=== PATIENT | male | born 1950 | race Caucasian/White ===

== ENCOUNTER 2018-08-17 11:22 | Inpatient (IN) | payer MEDICARE, BC ==
[2018-08-17 12:07] LABS: CHLORIDE,CL 98 mEq/L (98-106); SODIUM,NA 135 mEq/L (136-145)
[2018-08-17] MEDS ORDERED: Ibuprofen 200 MG Tab PO PRN (12:19)
[2018-08-17] MEDS ORDERED: Sodium Chloride 0.9% 10 ML Syringe FLUSH PRN (12:19)
[2018-08-17] MEDS ORDERED: Temazepam 15 MG Cap PO PRN (12:19)
[2018-08-17] MEDS: Azithromycin 500 MG in Sodium Chloride 0.9% 250 ML IV SCH (13:09)
[2018-08-17] MEDS: cefTRIAXone 1 GM Vial IVPUSH SCH (13:09)
[2018-08-17] MEDS: Albuterol/Ipratropium 3.0-0.5 MG/3 ML Neb Soln NEB PRN ×2 (13:09→19:54)
[2018-08-17] MEDS: Enoxaparin 40 MG/0.4 ML Syringe SUBCUT SCH (13:09)
[2018-08-17] MEDS ORDERED: Insulin Aspart 100 Units/ML 3 ML Pen SUBCUT SCH (17:30)
[2018-08-17] MEDS: SITAGLIPTIN PO SCH (17:32)
[2018-08-17] MEDS: METFORMIN PO SCH (17:32)
[2018-08-17] MEDS: Acetaminophen 325 MG Tab PO PRN (19:50)
[2018-08-18] MEDS: Acetaminophen 325 MG Tab PO PRN (07:45)
[2018-08-18] MEDS: Albuterol/Ipratropium 3.0-0.5 MG/3 ML Neb Soln NEB PRN (07:45)
[2018-08-18] MEDS: Aspirin 81 MG Tab.EC PO SCH (07:46)
[2018-08-18] MEDS: atorvaSTATin 10 MG Tab PO SCH (07:46)
[2018-08-18] MEDS: SITAGLIPTIN PO SCH ×2 (07:47→17:33)
[2018-08-18] MEDS: METFORMIN PO SCH ×2 (07:47→17:33)
[2018-08-18] MEDS: Lisinopril 5 MG Tab PO SCH (07:47)
[2018-08-18 07:56] LABS: CHLORIDE,CL 100 mEq/L (98-106); SODIUM,NA 137 mEq/L (136-145)
--- NOTE | 2018-08-18 09:26 | PCM.PN ---
- General Info Date of Service: 08/18/18 Admission Dx/Problem (Free Text): CAP Functional Status: Reports: Pain Controlled, Tolerating Diet, Ambulating - Review of Systems General: Reports: Fever, Weakness, Fatigue, Malaise HEENT: Reports: Rhinitis. Denies: Sinus Congestion, Sore Throat Pulmonary: Reports: Shortness of Breath, Cough, Wheezing Cardiovascular: Denies: Chest Pain, Edema, Lightheadedness Gastrointestinal: Denies: Abdominal Pain, Nausea, Vomiting Genitourinary: Reports: No Symptoms Musculoskeletal: Reports: No Symptoms Skin: Reports: No Symptoms Neurological: Reports: No Symptoms - Patient Data Vitals - Most Recent: Last Vital Signs Temp 97.9 F 08/18/18 04:00 Pulse 78 08/18/18 04:00 Resp 20 08/18/18 04:00 BP 144/78 H 08/18/18 07:47 Pulse Ox 94 L 08/18/18 04:00 Weight - Most Recent: 292 lb Lab Results Last 24 Hours: Laboratory Results - last 24 hr 08/17/18 08/17/18 08/17/18 Range/Units 11:32 11:32 17:30 WBC 11.3 H (5.0-10.0) 10^3/uL RBC 4.94 (4.50-6.00) 10^6/uL Hgb 14.5 (14.0-18.0) g/dL Hct 43.1 (40.0-54.0) % MCV 87.2 (82.0-94.0) fL MCH 29.4 (27.0-32.0) pg MCHC 33.6 (33.0-38.0) g/dL RDW Coeff of Erica 13.1 (11.0-15.0) % Plt Count 177 (150-400) 10^3/uL Neut % (Auto) 73.0 (35-85) % Lymph % (Auto) 12.3 (10-55) % [place] % (Auto) 9.5 (0-16) % Eos % (Auto) 4.8 (0-5) % Baso % (Auto) 0.4 (0-3) % Neut # (Auto) 8.22 H (1.80-7.00) 10^3/uL Lymph # (Auto) 1.39 (1.00-4.80) 10^3/uL [place] # (Auto) 1.07 H (0.00-0.80) 10^3/uL Eos # (Auto) 0.54 H (0.00-0.45) 10^3/uL Baso # (Auto) 0.05 10^3/uL Sodium 135 L (136-145) mEq/L Potassium 4.2 (3.5-5.0) mEq/L Chloride 98 (98-106) mEq/L Carbon Dioxide 29 (21-32) mmol/L BUN 18 (7-18) mg/dL Creatinine 1.2 (0.7-1.3) mg/dL Est Cr Clr Drug Dosing TNP Estimated GFR (MDRD) > 60 (>=60) mL/min Glucose 212 H D (75-99) mg/dL POC Glucose 181 H (75-105) mg/dl Calcium 8.6 (8.4-10.1) mg/dL C-Reactive Protein 1.7 H (0.2-0.8) mg/dL 08/17/18 08/18/18 08/18/18 Range/Units 20:35 05:11 07:26 WBC 8.4 (5.0-10.0) 10^3/uL RBC 4.32 L (4.50-6.00) 10^6/uL Hgb 12.8 L (14.0-18.0) g/dL Hct 38.5 L (40.0-54.0) % MCV 89.1 (82.0-94.0) fL MCH 29.6 (27.0-32.0) pg MCHC 33.2 (33.0-38.0) g/dL RDW Coeff of Erica 13.1 (11.0-15.0) % Plt Count 154 (150-400) 10^3/uL Neut % (Auto) 62.0 (35-85) % Lymph % (Auto) 21.0 (10-55) % [place] % (Auto) 11.9 (0-16) % Eos % (Auto) 4.6 (0-5) % Baso % (Auto) 0.5 (0-3) % Neut # (Auto) 5.22 (1.80-7.00) 10^3/uL Lymph # (Auto) 1.77 (1.00-4.80) 10^3/uL [place] # (Auto) 1.00 H (0.00-0.80) 10^3/uL Eos # (Auto) 0.39 (0.00-0.45) 10^3/uL Baso # (Auto) 0.04 10^3/uL Sodium 137 (136-145) mEq/L Potassium 4.2 (3.5-5.0) mEq/L Chloride 100 (98-106) mEq/L Carbon Dioxide 29 (21-32) mmol/L BUN 17 (7-18) mg/dL Creatinine 1.1 (0.7-1.3) mg/dL Est Cr Clr Drug Dosing 65.17 Estimated GFR (MDRD) > 60 (>=60) mL/min Glucose 210 H (75-99) mg/dL POC Glucose 198 H (75-105) mg/dl Calcium 8.7 (8.4-10.1) mg/dL C-Reactive Protein 2.4 H (0.2-0.8) mg/dL 08/18/18 Range/Units 07:27 WBC (5.0-10.0) 10^3/uL RBC (4.50-6.00) 10^6/uL Hgb (14.0-18.0) g/dL Hct (40.0-54.0) % MCV (82.0-94.0) fL MCH (27.0-32.0) pg MCHC (33.0-38.0) g/dL RDW Coeff of Erica (11.0-15.0) % Plt Count (150-400) 10^3/uL Neut % (Auto) (35-85) % Lymph % (Auto) (10-55) % [place] % (Auto) (0-16) % Eos % (Auto) (0-5) % Baso % (Auto) (0-3) % Neut # (Auto) (1.80-7.00) 10^3/uL Lymph # (Auto) (1.00-4.80) 10^3/uL [place] # (Auto) (0.00-0.80) 10^3/uL Eos # (Auto) (0.00-0.45) 10^3/uL Baso # (Auto) 10^3/uL Sodium (136-145) mEq/L Potassium (3.5-5.0) mEq/L Chloride (98-106) mEq/L Carbon Dioxide (21-32) mmol/L BUN (7-18) mg/dL Creatinine (0.7-1.3) mg/dL Est Cr Clr Drug Dosing Estimated GFR (MDRD) (>=60) mL/min Glucose (75-99) mg/dL POC Glucose 182 H (75-105) mg/dl Calcium (8.4-10.1) mg/dL C-Reactive Protein (0.2-0.8) mg/dL Mesfin Results Last 24 Hours: Microbiology 08/17/18 11:32 Influenza Type A Antigen Screen - Final Nasopharyngeal Swab NEGATIVE INFLUENZA A VIRUS AG Influenza Type B Antigen Screen - Final NEGATIVE INFLUENZA B VIRUS AG Med Orders - Current: Current Medications Acetaminophen (Tylenol) 650 mg PO Q4H PRN PRN Reason: Pain (Mild 1-3)/fever Last Admin: 08/18/18 07:45 Dose: 650 mg Albuterol/Ipratropium (Duoneb 3.0-0.5 Mg/3 Ml) 3 ml NEB QIDRT [facility] Aspirin (Halfprin) 81 mg PO DAILY [facility] Last Admin: 08/18/18 07:46 Dose: 81 mg Atorvastatin Calcium (Lipitor) 10 mg PO DAILY [facility] Last Admin: 08/18/18 07:46 Dose: 10 mg Ceftriaxone Sodium (Rocephin) 1 gm IVPUSH Q24H [facility] Last Admin: 08/17/18 13:09 Dose: 1 gm Enoxaparin Sodium (Lovenox) 40 mg SUBCUT Q24H [facility] Last Admin: 08/17/18 13:09 Dose: 40 mg Azithromycin 500 mg/ Sodium (Chloride) 250 mls @ 250 mls/hr IV Q24H [facility] Last Admin: 08/17/18 13:09 Dose: 250 mls/hr Ibuprofen (Motrin) 400 mg PO Q6H PRN PRN Reason: Pain (mild 1-3) Insulin Aspart (Novolog) 0 unit SUBCUT TIDMEALS [facility]; Protocol Last Admin: 08/18/18 07:54 Dose: 2 units Lisinopril (Prinivil) 5 mg PO DAILY [facility] Last Admin: 08/18/18 07:47 Dose: 5 mg Methylprednisolone Sodium Succinate (Solu-Medrol) 62.5 mg IVPUSH Q12H [facility] Sitagliptin/Metformin [Janumet] 50-1,000mg Own Med 1 tab PO BIDMEALS [facility] Last Admin: 08/18/18 07:47 Dose: 1 tab Sodium Chloride (Saline Flush) 10 ml FLUSH ASDIRECTED PRN PRN Reason: Keep Vein Open Temazepam (Restoril) 15 mg PO BEDTIME PRN PRN Reason: Sleep Discontinued Medications Albuterol/Ipratropium (Duoneb 3.0-0.5 Mg/3 Ml) 3 ml NEB Q4H PRN PRN Reason: Shortness Of Breath/wheezing Last Admin: 08/18/18 07:45 Dose: 3 ml Insulin Aspart (Novolog) 0 unit SUBCUT TIDMEALS [facility]; Protocol Last Admin: 08/17/18 17:51 Dose: Not Given - Exam General: Alert, Oriented HEENT: Mucous Membr. Moist/[place] Neck: Supple Lungs: Decreased Breath Sounds, Wheezing Cardiovascular: Regular Rate, Regular Rhythm GI/Abdominal Exam: Normal Bowel Sounds, Soft, Non-Tender Extremities: Normal Inspection, No Pedal Edema Skin: Warm, Dry Neurological: No New Focal Deficit - Problem List & Annotations (1) Asthma exacerbation SNOMED Code(s): 774934771 Code(s): J45.901 - UNSPECIFIED ASTHMA WITH (ACUTE) EXACERBATION Status: Acute Priority: High Current Visit: Yes Qualifiers: Asthma severity: moderate Asthma persistence: persistent Qualified Code(s ): J45.41 - Moderate persistent asthma with (acute) exacerbation (2) Bronchitis SNOMED Code(s): 90596156 Code(s): J40 - BRONCHITIS, NOT SPECIFIED ACUTE OR CHRONIC Status: Acute Priority: High Current Visit: Yes - Problem List Review Problem List Initiated/Reviewed/Updated: Yes - My Orders Last 24 Hours: My Active Orders 08/18/18 09:00 methylPREDNISolone Sod Succ [Solu-MEDROL] 62.5 mg IVPUSH Q12H 08/18/18 12:00 Albuterol/Ipratropium [DuoNeb 3.0-0.5 MG/3 ML] 3 ml NEB QIDRT - Assessment Assessment:: CAP ruled out Asthma Exacerbation Acute Bronchitis - Plan Plan:: Patient is showing improvement today. Has better air exchange today. Still noted to have diffuse wheezing. Fever of 101 last evening. WBC 8.4. CRP 2.4. Hemoglobin 12.8. Chest Xray clear for infiltrates, does show air trapping related to asthma. Is ambulating better today, does still get dyspneic but relates it has improved. Maintaining his sats above 90%. Will continue with IV antibiotics as ordered. Start Solu Medrol 62.5 mg BID. Watch blood sugars closely. Schedule nebulizer treatments. Stop cardiac monitoring. possible discharge home tomorrow.
[2018-08-18] MEDS: methylPREDNISolone Sodium Succinate 125 MG/2 ML SDV IVPUSH SCH ×2 (09:41→20:00)
[2018-08-18] MEDS: Azithromycin 500 MG in Sodium Chloride 0.9% 250 ML IV SCH (13:11)
[2018-08-18] MEDS: Enoxaparin 40 MG/0.4 ML Syringe SUBCUT SCH (13:11)
[2018-08-18] MEDS: cefTRIAXone 1 GM Vial IVPUSH SCH (13:11)
[2018-08-18] MEDS: Albuterol/Ipratropium 3.0-0.5 MG/3 ML Neb Soln NEB SCH ×3 (13:11→19:54)
[2018-08-18] MEDS ORDERED: Insulin Aspart 100 Units/ML 3 ML Pen SUBCUT SCH ×2 (21:00→21:53)
[2018-08-19] MEDS: Albuterol/Ipratropium 3.0-0.5 MG/3 ML Neb Soln NEB SCH (07:31)
[2018-08-19] MEDS: Aspirin 81 MG Tab.EC PO SCH (07:31)
[2018-08-19] MEDS: Lisinopril 5 MG Tab PO SCH (07:31)
[2018-08-19] MEDS: atorvaSTATin 10 MG Tab PO SCH (07:31)
[2018-08-19 07:32] VITALS: BP 150/79
[2018-08-19] MEDS: METFORMIN PO SCH (08:07)
[2018-08-19] MEDS: SITAGLIPTIN PO SCH (08:07)
[2018-08-19] MEDS: methylPREDNISolone Sodium Succinate 125 MG/2 ML SDV IVPUSH SCH (08:50)
--- NOTE | 2018-08-19 15:36 | PCM.DCSUM1 ---
Discharge Summary - Hospital Course Free Text/Narrative:: Patient presented to clinic to see Angelo Herrera due to 5 day history of cough, shortness of breath and wheezing. Patient relates he has a history of asthma but has not needed any form of treatment for this for many years. Admits that symptoms have worsened every day. Had notable wheezing, decreased air exchange in clinic. Lab work done which did show mild leukocytosis at 11.3, CRP 1.7. Concerns noted on chest xray of small infiltrate. Admitted for pneumonia, started on IV Rocephin and Zithromax as well as neb treatments. Diagnosis: Stroke: No Modified [place] Scale: No Symptoms at All Modified [place] Scale Score: 0 - Discharge Data Discharge Date: 08/19/18 Discharge Disposition: Home, Self-Care 01 Condition: Good - Discharge Diagnosis/Problem(s) (1) Asthma exacerbation SNOMED Code(s): 147780893 ICD Code: J45.901 - UNSPECIFIED ASTHMA WITH (ACUTE) EXACERBATION Status: Acute Priority: High Qualifiers: Asthma severity: moderate Asthma persistence: persistent Qualified Code(s ): J45.41 - Moderate persistent asthma with (acute) exacerbation (2) Bronchitis SNOMED Code(s): 44210373 ICD Code: J40 - BRONCHITIS, NOT SPECIFIED ACUTE OR CHRONIC Status: Acute Priority: High - Patient Summary/Data Complications: none Hospital Course: Patient much improved. Has good air exchange, less wheezing now. Oxygen sats have maintained over 90% on room air throughout admission. Was started on IV Solu Medrol yesterday. Is ambulating in the halls and tolerating fairly well. Appetite is good. WBC did improve to 8. CRP at 2.4. Blood cultures negative. Influenza negative. Blood sugars mildly elevated from steroids. Will discharge home on Ceftin, prednisone and nebs. Follow up with Dr. Andrade in one week. - Patient Instructions Diet: Diabetic Diet Activity: As Tolerated - Discharge Plan *PRESCRIPTION DRUG MONITORING PROGRAM REVIEWED*: No *COPY OF PRESCRIPTION DRUG MONITORING REPORT IN PATIENT TAYO: No Prescriptions/Med Rec: Albuterol [Ventolin HFA] 2 puff INH Q4H PRN #1 puff PRN Reason: Wheezing Albuterol/Ipratropium [DuoNeb 3.0-0.5 MG/3 ML] 3 ml NEB QIDRT #28 neb Cefuroxime [Ceftin] 250 mg PO BID #20 tab predniSONE [Prednisone] 20 mg PO DAILY #5 tablet Home Medications: Home Meds Aspirin [Adult Low Dose Aspirin EC] 81 mg PO DAILY 05/14/16 [History] Cholecalciferol (Vitamin D3) [Vitamin D3] 5,000 unit PO DAILY 05/14/16 [History] Magnesium Oxide/Mag AA Chelate [Magnesium] 1 cap PO DAILY 05/14/16 [History] Multivitamin [Daily Multiple Vitamin] 1 tab PO DAILY 05/14/16 [History] Friendly-3 Fatty Acids [Fish Oil] 2,000 mg PO DAILY 05/14/16 [History] atorvaSTATin Calcium [Atorvastatin Calcium] 10 mg PO DAILY 05/14/16 [History] sitaGLIPtin Phos/Metformin HCl [Janumet 50-1,000 MG] 1 tab PO BID 05/14/16 [ History] Lisinopril 5 mg PO DAILY 08/17/18 [History] Albuterol [Ventolin HFA] 2 puff INH Q4H PRN #1 puff 08/19/18 [Rx] Albuterol/Ipratropium [DuoNeb 3.0-0.5 MG/3 ML] 3 ml NEB QIDRT #28 neb 08/19/18 [ Rx] Cefuroxime [Ceftin] 250 mg PO BID #20 tab 08/19/18 [Rx] predniSONE [Prednisone] 20 mg PO DAILY #5 tablet 08/19/18 [Rx] Referrals: Krishan Andrade MD [Primary Care Provider] - (Follow up with Dr. Andrade in 10 days ) - Discharge Summary/Plan Comment DC Time >30 min.: No - General Info Date of Service: 08/19/18 Admission Dx/Problem (Free Text: CAP Functional Status: Reports: Pain Controlled, Tolerating Diet, Ambulating - Review of Systems General: Reports: Fatigue. Denies: Fever, Weakness HEENT: Reports: Sinus Congestion, Rhinitis Pulmonary: Reports: Shortness of Breath, Cough. Denies: Wheezing Cardiovascular: Denies: Chest Pain, Edema, Lightheadedness Gastrointestinal: Denies: Abdominal Pain, Nausea, Vomiting Genitourinary: Reports: No Symptoms Musculoskeletal: Reports: No Symptoms Skin: Reports: No Symptoms Neurological: Reports: No Symptoms Psychiatric: Reports: No Symptoms - Patient Data Vitals - Most Recent: Last Vital Signs Temp 97.7 F 08/19/18 08:00 Pulse 97 08/19/18 08:00 Resp 16 08/19/18 08:00 BP 150/79 H 08/19/18 08:00 Pulse Ox 98 08/19/18 08:00 Weight - Most Recent: 292 lb Lab Results - Last 24 hrs: Laboratory Results - last 24 hr 08/18/18 08/18/18 08/19/18 Range/Units 17:04 20:20 07:30 POC Glucose 339 H 400 H 355 H (75-105) mg/dl ANDREIA Results - Last 24 hrs: Microbiology 08/17/18 12:35 Aerobic Blood Culture - Preliminary Blood - Venous NO GROWTH AFTER 2 DAYS Anaerobic Blood Culture - Preliminary NO GROWTH AFTER 2 DAYS 08/17/18 12:40 Aerobic Blood Culture - Preliminary Blood - Venous - Lab Draw NO GROWTH AFTER 2 DAYS Anaerobic Blood Culture - Preliminary NO GROWTH AFTER 2 DAYS Med Orders - Current: Current Medications Discontinued Medications Acetaminophen (Tylenol) 650 mg PO Q4H PRN PRN Reason: Pain (Mild 1-3)/fever Last Admin: 08/18/18 07:45 Dose: 650 mg Albuterol/Ipratropium (Duoneb 3.0-0.5 Mg/3 Ml) 3 ml NEB Q4H PRN PRN Reason: Shortness Of Breath/wheezing Last Admin: 08/18/18 07:45 Dose: 3 ml Albuterol/Ipratropium (Duoneb 3.0-0.5 Mg/3 Ml) 3 ml NEB QIDRT [facility] Last Admin: 08/19/18 07:31 Dose: 3 ml Aspirin (Halfprin) 81 mg PO DAILY [facility] Last Admin: 08/19/18 07:31 Dose: 81 mg Atorvastatin Calcium (Lipitor) 10 mg PO DAILY [facility] Last Admin: 08/19/18 07:31 Dose: 10 mg Ceftriaxone Sodium (Rocephin) 1 gm IVPUSH Q24H [facility] Last Admin: 08/18/18 13:11 Dose: 1 gm Enoxaparin Sodium (Lovenox) 40 mg SUBCUT Q24H [facility] Last Admin: 08/18/18 13:11 Dose: 40 mg Azithromycin 500 mg/ Sodium (Chloride) 250 mls @ 250 mls/hr IV Q24H [facility] Last Admin: 08/18/18 13:11 Dose: 250 mls/hr Ibuprofen (Motrin) 400 mg PO Q6H PRN PRN Reason: Pain (mild 1-3) Insulin Aspart (Novolog) 0 unit SUBCUT TIDMEALS [facility]; Protocol Last Admin: 08/17/18 17:51 Dose: Not Given Insulin Aspart (Novolog) 0 unit SUBCUT TIDMEALS [facility]; Protocol Last Admin: 08/18/18 17:33 Dose: 8 units Insulin Aspart (Novolog) 0 unit SUBCUT WITHMEALSANDBED [facility]; Protocol Last Admin: 08/18/18 22:38 Dose: Not Given Insulin Aspart (Novolog) 0 unit SUBCUT WITHMEALSANDBED [facility]; Protocol Last Admin: 08/18/18 22:36 Dose: 10 units Insulin Aspart (Novolog) 0 unit SUBCUT WITHMEALSANDBED [facility]; Protocol Last Admin: 08/19/18 08:07 Dose: 10 units Lisinopril (Prinivil) 5 mg PO DAILY [facility] Last Admin: 08/19/18 07:31 Dose: 5 mg Methylprednisolone Sodium Succinate (Solu-Medrol) 62.5 mg IVPUSH Q12H [facility] Last Admin: 08/19/18 08:50 Dose: 62.5 mg Sitagliptin/Metformin [Janumet] 50-1,000mg Own Med 1 tab PO BIDMEALS [facility] Last Admin: 08/19/18 08:07 Dose: 1 tab Sodium Chloride (Saline Flush) 10 ml FLUSH ASDIRECTED PRN PRN Reason: Keep Vein Open Temazepam (Restoril) 15 mg PO BEDTIME PRN PRN Reason: Sleep - Exam General: Reports: Alert, Oriented HEENT: Reports: Mucous Membr. Moist/[place] Neck: Reports: Supple Lungs: Reports: Decreased Breath Sounds Cardiovascular: Reports: Regular Rate, Regular Rhythm GI/Abdominal Exam: Normal Bowel Sounds, Soft, Non-Tender Extremities: Normal Inspection, No Pedal Edema Skin: Reports: Warm, Dry Neurological: Reports: No New Focal Deficit
== END 2018-08-19 09:45 | disposition home or self-care (01) | DRG 203 ==
LOC: CC.MS 11:22 → CC.FCMC 11:22 → CC.MS 12:03 → UNDOADMIN 12:03 → CC.MS 12:19 → UNDOADMIN 08-18 09:35 → CC.MS 08-18 09:35 → UNDODISIN 08-19 09:45
PROVIDERS: ADMIT Physician Assistant Medical; ATTEND Family Medicine
DX: J45.41 Moderate persistent asthma with (acute) exacerbation (principal); R50.9 Fever, unspecified; J20.9 Acute bronchitis, unspecified; Z79.82 Long term (current) use of aspirin; Z79.899 Other long term (current) drug therapy; Z87.442 Personal history of urinary calculi
CPT/HCPCS: 36415; 71046; 80048; 82962; 85025; 86140; 87040; 87804; 94640; A9270-GY; J0456; J0696; J1650; J2930; J7050; J7620-GY